=== PATIENT | male | born 1995 | race African-American/Black ===

== ENCOUNTER 2017-04-01 22:33 | Emergency (ER) | payer MEDICAID, OTHER ==
[~2017-04-01] VITALS: Ht 175.3 cm; Wt 102.0 kg
[2017-04-01 22:36] VITALS: BP 133/79; PULSE 66; RESP 16; TEMP 98.4; O2SAT 98
[2017-04-01] MEDS ORDERED: predniSONE 20 MG TAB PO ONE (23:15)
[2017-04-01] MEDS ORDERED: diphenhydrAMINE HCL 50 MG/ML VIAL IM ONE (23:15)
[2017-04-01] MEDS ORDERED: FAMOTIDINE 20 MG TAB PO ONE (23:15)
[2017-04-01] MEDS ORDERED: FAMO1TAB37 PO (23:16)
[2017-04-01] MEDS ORDERED: MEDR4PAK PO (23:16)
[2017-04-01] MEDS ORDERED: CLAR10CA3 PO (23:16)
--- NOTE | 2017-04-01 23:18 | PD ---
HPI Chief Complaint: Skin Problem Time Seen by Provider: 23:10 Travel History International Travel<30 days: No Contact w/Intl Traveler<30days: No Traveled to known affect area: No History of Present Illness HPI ONSET OF RASH SINCE CHANGE IN DETERGENT OVER A WEEK AGO KEEPS HAPPENING WHENEVER HE CHANGES INTO NEW CLOTHES, ITCHY, BUT NO OTHER MAJOR SYMPTOMS...NO SOB/WHEEZING/COUGH/ SWELLING TO LIPS/TONGUE OR ANY BODY PART. PFSH Past Medical History Medical History: Denies Significant Hx Diminished Hearing: No Immunizations Current: Yes Tetanus Vaccination: > 5 Years Influenza Vaccination: No Past Surgical History Surgical History: No Previous Surgery Social History Alcohol Use: Yes (OCCASIONAL) Tobacco Use: No Substance Use: No Allergies-Medications (Allergen,Severity, Reaction): Coded Allergies: No Known Allergies (Unverified , 04/01/17) Reported Meds & Prescriptions Reported Meds & Active Scripts Active No Active Prescriptions or Reported Medications Review of Systems General / Constitutional: No: Fever Eyes: No: Visual changes HENT: No: Headaches Cardiovascular: No: Chest Pain or Discomfort Respiratory: No: Shortness of Breath Gastrointestinal: No: Abdominal Pain Genitourinary: No: Dysuria Musculoskeletal: No: Pain Skin: Positive Rash, Positive Itching, Positive Other (HIVES) Neurologic: No: Weakness Psychiatric: No: Depression Endocrine: No: Polydipsia Hematologic/Lymphatic: No: Easy Bruising Physical Exam Narrative GENERAL: SKIN: Warm and dry. MACULOPAPULAR LESIONS AND HIVES NOTED THROUGHOUT BODY, SOME EXCORIATION BAUER HEAD: Atraumatic. Normocephalic. EYES: Pupils equal and round. No scleral icterus. No injection or drainage. ENT: No nasal bleeding or discharge. Mucous membranes pink and moist.NO STRIDOR...NO UVULAR EDEMA, NO TONGUE EDEMA NECK: Trachea midline. No JVD. CARDIOVASCULAR: Regular rate and rhythm. RESPIRATORY: No accessory muscle use. Clear to auscultation. Breath sounds equal bilaterally. NO WHEEZING GASTROINTESTINAL: Abdomen soft, non-tender, nondistended. Hepatic and splenic margins not palpable. MUSCULOSKELETAL: Extremities without clubbing, cyanosis, or edema. No obvious deformities. NEUROLOGICAL: Awake and alert. No obvious cranial nerve deficits. Motor grossly within normal limits. Five out of 5 muscle strength in the arms and legs. Normal speech. PSYCHIATRIC: Appropriate mood and affect; insight and judgment normal. Data Data Last Documented VS Vital Signs Date Time Temp Pulse Resp B/P (MAP) Pulse Ox O2 Delivery O2 Flow Rate FiO2 04/01/17 22:36 98.4 66 16 133/79 (97) 98 Orders Orders Diphenhydramine Inj (Benadryl Inj) (04/01/17 23:15) Prednisone (Deltasone) (04/01/17 23:15) Famotidine (Pepcid) (04/01/17 23:15) MDM Medical Decision Making Medical Screen Exam Complete: Yes Emergency Medical Condition: Yes Medical Record Reviewed: Yes Differential Diagnosis ALLERGIC RXN V DERMATITIS Narrative Course PATIENT WITHOUT RESPIRATORY ISSUES, WILL D/C HOME Diagnosis Primary Impression: Hives Referrals: [facility] FOR REFERRAL TO ALLERGY/IMMUNE SPECIALIST FOR TESTING Patient Instructions: General Allergic Reaction (ED), General Instructions Scripts Methylprednisolone Dosepak (Medrol Dosepak) 4 Mg Dspk 4 MG PO DIRECTED, #1 DSPK 0 Refills Per Pharmacist direction Prov: Giovani Huerta MD 04/01/17 Famotidine (Pepcid) 20 Mg Tab 20 MG PO BID, #10 TAB 0 Refills Prov: Giovani Huerta MD 04/01/17 Loratadine (Claritin) 10 Mg Cap 10 MG PO DAILY for Allergy Management, #7 CAP 0 Refills Prov: Giovani Huerta MD 04/01/17 Disposition: 01 DISCHARGE HOME Condition: Stable Giovani Huerta MD Apr 01, 2017 23:18
== END 2017-04-01 23:53 | disposition home or self-care (01) ==
LOC: NEPE 22:33
DX: L50.9 Urticaria, unspecified (principal)
CPT/HCPCS: 96372; 99284; J1200; J7512